=== PATIENT | female | born 1980 | race Caucasian/White ===

== ENCOUNTER 2020-07-14 13:45 | Emergency (ER) | payer OTHER ==
[2020-07-14 14:23] VITALS: BP 136/82; PULSE 100; TEMP 98.1; BMI 32.5
--- NOTE | 2020-07-14 14:39 | PDOC ---
History of Present Illness - General Chief Complaint: Blood Pressure Problem Stated Complaint: HIGH BLOOD PRESSURE Time Seen by Provider: 07/14/20 13:53 History Source: Patient - History of Present Illness Initial Comments: 07/14/20 14:29 39 yo female pmh HTN and HLD presents to the ED with elevated BP, GALLEGOS and CP. Pt states this am she noted her BP to be 160 systolic and became concerned, PCP appointment is on 07/25 so she decided not to wait and came to the ED. Pt took amlodipine and valsartan after her initial BP reading at home, BP in the ED 130 systolic. Pt reports having a new GALLEGOS today with dizziness. Denies changes in vision, N/V/F/C, changes in gait, weakness or sensory changes on 1 side/. Pt also complains of CP described as pressure, made worse on ambulation. Pt reports this pain of of the same quality and intensity as CP she has had over the last 2 months, states she is in discussion with her PCP for Cardiology follow up but has never seen a pilot supervisor. Denies fhx of DE, smoking hx, calf tenderness, SOB, abdominal pain, back pain. Past History - Medical History Allergies/Adverse Reactions: Allergies Allergy/AdvReac Type Severity Reaction Status Date / Time No Known Allergies Allergy Verified 07/14/20 13:48 Home Medications: Ambulatory Orders Amlodipine Besylate 10 mg PO DAILY 07/14/20 Valsartan 320 mg PO DAILY 07/14/20 COPD: No GI Disorders: Yes (GERD) HTN: Yes - Reproductive History Is Patient Now?: No - Psycho-Social/Smoking History Smoking History: Never smoked - Substance Abuse Hx (Audit-C & DAST Scrn) How often the patient has a drink containing alcohol: Monthly or less Score: In Men: 4 or > Positive; In Women: 3 or > Positive: 1 Screen Result (Pos requires Nsg. Audit-10AR): Negative In the last yr the pt used illegal drug/Rx for NonMed reason: No Score: Yes response is considered Positive: 0 Screen Result (Positive result requires Nsg. DAST-10): Negative Review of Systems - Review of Systems Constitutional: Yes: Symptoms Reported HEENTM: Yes: Symptoms Reported Respiratory: Yes: Symptoms reported Cardiac (ROS): Yes: Symptoms Reported ABD/GI: Yes: Symptoms Reported : Yes: Symptoms Reported Musculoskeletal: Yes: Symptoms Reported Integumentary: Yes: Symptoms Reported Neurological: Yes: Symptoms reported *Physical Exam - Vital Signs Last Vital Signs Temp Pulse Resp BP Pulse Ox 98.1 F 100 H 15 136/82 100 07/14/20 13:47 07/14/20 13:47 07/14/20 13:47 07/14/20 13:47 07/14/20 13:47 - Physical Exam General Appearance: Yes: Nourished, Appropriately Dressed. No: Apparent Distress HEENT: positive: EOMI Neck: positive: Supple Respiratory/Chest: positive: Lungs Clear, Normal Breath Sounds. negative: Respiratory Distress, Accessory Muscle Use, Crackles, Rales, Rhonchi, Stridor, Wheezing Cardiovascular: positive: Regular Rhythm, S1, S2, Tachycardia. negative: Edema, JVD, Murmur Vascular Pulses: Dorsalis-Pedis (R): 4+, Doralis-Pedis (L): 4+ Gastrointestinal/Abdominal: positive: Flat, Soft. negative: Pulsatile Mass, Protuberent, Guarding, Rebound, Tenderness Musculoskeletal: negative: CVA Tenderness Extremity: positive: Normal Capillary Refill, Normal Inspection Integumentary: positive: Normal Color, Dry, Warm Neurologic: positive: eyeglass frame truer II-XII NML intact, Fully Oriented, Alert, Normal Mood/Affect, Normal Response, Motor Strength 5/5, Finger to Nose (normal). negative: Facial Droop, Numbness, Sensory Deficit, Confused, Disoriented Heart Score/ECG Review - History History: Slightly suspicious - Electrocardiogram EKG: Normal - Age Age: </= 45 - Risk Factors Risk Factors Heart Score: Yes Hx Hypercholesterolemia, Yes Hx Hypertension, No Hx Diabetes, No Smoking History, No Positive family hx of cardiac disease - Troponin Troponin: </= normal limit ED Treatment Course - LABORATORY CBC & Chemistry Diagram: 07/14/20 14:50 07/14/20 14:50 - RADIOLOGY Radiology Studies Ordered: Category Date Time Status HEAD CT WITHOUT CONTRAST [CT] Stat CT Scan 07/14/20 13:59 Ordered CHEST PA & LAT [RAD] Stat Radiology 07/14/20 13:59 Taken Medical Decision Making - Medical Decision Making 07/14/20 15:40 39 yo female pmh HTN and HLD presents to the ED with elevated BP, GALLEGOS and CP. Pt states this am she noted her BP to be 160 systolic and became concerned, PCP prince rosa is on 07/25 so she decided not to wait and came to the ED. Pt took amlodipine and valsartan after her initial BP reading at home, BP in the ED 130 systolic. Pt reports having a new GALLEGOS today with dizziness. Denies changes in vision, N/V/F/C, changes in gait, weakness or sensory changes on 1 side/. Pt also complains of CP described as pressure, made worse on ambulation. Pt reports this pain of of the same quality and intensity as CP she has had over the last 2 months, states she is in discussion with her PCP for Cardiology follow up but has never seen a pilot supervisor. Denies fhx of DE, smoking hx, calf tenderness, SOB, abdominal pain, back pain. vitals stable, HR 100, BP 136 systolic NAD Pt has a HEART score 2-3, pending labs, CXR and trop Pt ambulates in the ED without pain or worsening CP 07/14/20 15:44 EKG shows NSR, Vent rate 78, QTC 446, normal intervals, no ST changes Labs WNL including trop CXR wnl Pt is safe for DC home with PCP f/u and Cardiology Discharge - Discharge Information Problems reviewed: Yes Clinical Impression/Diagnosis: High blood pressure, Chest pain Condition: Good Disposition: HOME - Admission No - Follow up/Referral Referrals: Kev Edmond MD [Staff Physician] - [facility] [place] [facility] [place] [Provider Group] - Patient Discharge Instructions Patient Printed Discharge Instructions: DI for High Blood Pressure, DI for Atypical Chest Pain, DI for Chest Pain, How to Monitor Your Blood Pressure at Home Additional Instructions: Please see your Primary Doctor within 48 hours and make an appointment to see the Sports Reporter as soon as possible. Make sure to take your blood pressure medications as prescribed daily. Return to the ER for new or concerning symptoms. THank you Print Language: SAMOAN - Post Discharge Activity
--- NOTE | 2020-07-14 14:52 | PDOC ---
Attending Attestation - Resident Resident Name: YousifSaturnino - ED Attending Attestation I have performed the following: I have examined & evaluated the patient, The case was reviewed & discussed with the resident, I agree w/resident's findings & plan, Exceptions are as noted - HPI HPI: 07/14/20 14:22 39YOF with h/o HTN, HLD, and obesity who p/w report of high blood pressure at home (150s systolic yesterday and 160s systolic today, both measurements taken about 24 hours after her previous daily dose of antihypertensive meds). She notes associated mid-chest and left shoulder pain which has been ongoing but fluctuating for months, no different today than normal. She additionally notes occasional lightheadedness and mild dull diffuse headache for the same time span. She denies any SOB, cough, wheezing, palpitations, abdominal pain, back pain, or numbness, tingling, or focal weakness. No h/o smoking, no FHx cardiac issues. - Physicial Exam PE: 07/14/20 15:22 GENERAL: well-appearing, nontoxic, obese, comfortable, accompanied by family, Cuban speaking, A/Ox4, no distress, answers questions appropriately HEENT: PERRLA, EOMI, moist mucous membranes NECK/BACK: no midline ttp, no spinal step-off or deformity, no hematoma, full ROM, neck supple CARDIOVASCULAR: regular rate/rhythm, no MGR, strong peripheral pulses, capillary refill <2 seconds, extremities wwp, no edema LUNGS/RESPIRATORY: no respiratory distress, CTAB GI/ABDOMEN: symmetric [id number], normoactive BS, soft, no ttp, no midline pulsatile masses : no CVA tenderness MSK/EXTREMITIES: no muscle atrophy, no acute deformity SKIN: warm and dry, no pallor, no jaundice, no rash, no pathologic-appearing bruising, no skin breakdown, no cuts, no lesions NEUROLOGICAL: GCS 15, CN II-XII grossly intact, 5/5 strength proximally and distally, no facial droop - Medical Decision Making 07/14/20 15:33 39YOF with HTN, HLD, and obesity p/w fluctuating CP for months and also mild HTN measured at home for 2 days. Initial Vital Signs Temp Pulse Resp BP Pulse Ox 98.1 F 100 H 15 136/82 100 07/14/20 13:47 07/14/20 13:47 07/14/20 13:47 07/14/20 13:47 07/14/20 13:47 Most likely this is unchanged chronic non-cardiac chest pain as the patient has few risk factors, is fairly young, and has no associated SOB, nausea, neck pain, jaw pain, and there is no exertional component and it has been present/fluctuating for the past few months. Less likely ACS, not likely PE as patient's vitals are wnl and she is not SOB, unlikely esophageal pathology as patient has no hx and no trouble eating/swallowing, possible gastritis/PUD but there is no burning component and no strange taste in her mouth, less likely pancreatitis or biliary pathology as her pain is in the left shoulder more than right and has no exacerbation after eating and no radiation to the back and no RUQ or epigastric ttp. Possible musculoskeletal component/costochondritis. Provider Orders Category Date Time Status HEAD CT WITHOUT CONTRAST [CT] Stat CT Scan 07/14/20 13:59 Completed ELECTROCARDIOGRAM [CARD] Stat Cardiology 07/14/20 13:59 Completed EKG needed NOW Care 07/14/20 14:00 Active CARDIAC PROFILE (ONLY [facility]) Stat Lab 07/14/20 14:50 Completed CBC WITH DIFFERENTIAL Stat Lab 07/14/20 14:50 Completed COMP METABOLIC PANEL Stat Lab 07/14/20 14:50 Completed HCG,QUALITATIVE URINE Stat Lab 07/14/20 15:15 Completed PT/INR (PROTHROMBIN TIME) Stat Lab 07/14/20 14:50 Completed UA ([facility] ONLY) Stat Lab 07/14/20 15:15 Completed CHEST PA & LAT [RAD] Stat Radiology 07/14/20 13:59 Completed Lab Results WBC 5.2 K/mm3 (4.0-10.8) 07/14/20 14:50 RBC 4.56 M/mm3 (3.60-5.2) 07/14/20 14:50 Hgb 12.9 GM/dl (10.7-15.3) 07/14/20 14:50 Hct 39.1 % (32.4-45.2) 07/14/20 14:50 MCV 85.8 fl (80-96) 07/14/20 14:50 MCH 28.4 pg (25.7-33.7) 07/14/20 14:50 MCHC 33.1 g/dl (32.0-36.0) 07/14/20 14:50 RDW 22.6 % (11.6-15.6) H 07/14/20 14:50 Plt Count 272 K/MM3 (134-434) 07/14/20 14:50 MPV 8.4 fl (7.5-11.1) 07/14/20 14:50 Absolute Neuts (auto) 3.6 K/mm3 07/14/20 14:50 Neutrophils % 68.8 % (42.8-82.8) 07/14/20 14:50 Lymphocytes % 23.5 % (8-40) 07/14/20 14:50 Monocytes % 5.6 % (3.8-10.2) 07/14/20 14:50 Eosinophils % 1.5 % (0-4.5) 07/14/20 14:50 Basophils % 0.6 % (0-2.0) 07/14/20 14:50 PT with INR 12.2 SEC (10.2-13.0) 07/14/20 14:50 INR 1.09 (0.82-1.09) 07/14/20 14:50 Sodium 137 mmol/L (136-145) 07/14/20 14:50 Potassium 4.4 mmol/L (3.5-5.1) 07/14/20 14:50 Chloride 106 mmol/L (98-107) 07/14/20 14:50 Carbon Dioxide 24 mmol/L (21-32) 07/14/20 14:50 Anion Gap 7 MMOL/L (8-16) L 07/14/20 14:50 BUN 11.0 mg/dl (7-18) 07/14/20 14:50 Creatinine 0.7 mg/dl (0.55-1.3) 07/14/20 14:50 Est GFR (CKD-EPI)AfAm 124.73 07/14/20 14:50 Est GFR (CKD-EPI)NonAf 107.62 07/14/20 14:50 Random Glucose 121 mg/dl (74-106) H 07/14/20 14:50 Calcium 9.0 mg/dl (8.5-10) 07/14/20 14:50 Total Bilirubin 0.6 mg/dl (0.2-1) 07/14/20 14:50 AST 18 U/L (15-37) 07/14/20 14:50 ALT 24 U/L (13-61) 07/14/20 14:50 Alkaline Phosphatase 67 U/L (45-117) 07/14/20 14:50 Creatine Kinase 95 U/L (26-192) 07/14/20 14:50 Troponin I < 0.03 ng/ml (0.00-0.05) 07/14/20 14:50 Total Protein 7.3 g/dl (6.4-8.2) 07/14/20 14:50 Albumin 4.5 g/dl (3.4-5.0) 07/14/20 14:50 Urine Color Yellow 07/14/20 15:15 Urine Appearance Clear 07/14/20 15:15 Urine pH 8.5 (4.5-8) H 07/14/20 15:15 Urine Protein Negative (NEGATIVE) 07/14/20 15:15 Urine Glucose (UA) Negative (NEGATIVE) 07/14/20 15:15 Urine Ketones Negative (NEGATIVE) 07/14/20 15:15 Urine Blood Negative (NEGATIVE) 07/14/20 15:15 Urine Nitrite Negative (NEGATIVE) 07/14/20 15:15 Urine Bilirubin Negative (NEGATIVE) 07/14/20 15:15 Urine Urobilinogen 0.2 (0.2-1.0) 07/14/20 15:15 Ur Leukocyte Esterase Negative (NEGATIVE) 07/14/20 15:15 Urine HCG, Qual Negative 07/14/20 15:15 RAD/CHEST PA LAT Chest: Chest pain 2 views of the chest have been submitted. There are no prior studies for comparison. There is some minimal vertebral wedging, clear lungs, sharp angles and normal mediastinum. An acute process is not seen. Impression: No acute chest pathology. Vertebral wedging. No comparison studies. CT/HEAD CT WITHOUT CONTRAST History: Headaches with elevated blood pressure CT scan of the brain without intravenous contrast. Axial images were obtained from the skull base up to the high convexity. COMPARISON: None available The ventricles and basal cisterns appear unremarkable. No mass lesion, gross acute infarct or intracranial hemorrhage are identified. Visualized paranasal sinuses and mastoid air cells are well-aerated. The calvarium is intact. Impression: No evidence of a focal intracranial lesion or hemorrhage seen. On last reassessment VS are stable, Pts pain is resolved, and exam is benign. The Pts HEART score indicates they are low risk and do not require admission currently. The Pt is appropriate for discharge with close outPt follow up. They are comfortable with this plan and will follow up with PCP in 1-3 days. Specific return precautions are discussed and they will come back to the ER if necessary. Heart Score/ECG Review - History History: Slightly suspicious - Electrocardiogram EKG: Normal - Age Age: </= 45 - Risk Factors Risk Factors Heart Score: Yes Hx Hypercholesterolemia, Yes Hx Hypertension, Yes Hx Obesity Based on the list above the patient has:: >/=3 risk factors or Hx atherosclerotic disease - Troponin Troponin: </= normal limit - Score Heart Score - Total: 2 #1 Sinus rhythm, rate 78, normal axis and intervals, no ischemic ST-T changes Discharge - Discharge Information Problems reviewed: Yes Clinical Impression/Diagnosis: High blood pressure Qualifiers: Hypertension type: unspecified Qualified Code(s): I10 - Essential (primary) hypertension Chest pain Qualifiers: Chest pain type: unspecified Qualified Code(s): R07.9 - Chest pain, unspecified Condition: Stable Disposition: HOME - Admission No - Follow up/Referral Referrals: [facility] [place] [facility] [place] [Provider Group] Kev Edmond MD [Staff Physician] - - Patient Discharge Instructions Patient Printed Discharge Instructions: DI for High Blood Pressure, DI for Atypical Chest Pain, DI for Chest Pain, How to Monitor Your Blood Pressure at Home Additional Instructions: Please see your Primary Doctor within 48 hours and make an appointment to see the Build Technician as soon as possible. Make sure to take your blood pressure medications as prescribed daily. Return to the ER for new or concerning symptoms. THank you Print Language: UPPER SORBIAN - Post Discharge Activity
[2020-07-14 15:00] LABS: BASO % 0.6 % (0-2.0); EOS % 1.5 % (0-4.5); HEMATOCRIT 39.1 % (32.4-45.2); HEMOGLOBIN 12.9 GM/dl (10.7-15.3); LYMPH % 23.5 % (8-40); MCH 28.4 pg (25.7-33.7); MCHC 33.1 g/dl (32.0-36.0); MEAN CELL VOLUME 85.8 fl (80-96); MEAN PLT VOLUME 8.4 fl (7.5-11.1); MONO % 5.6 % (3.8-10.2); NEUT % 68.8 % (42.8-82.8); PLATELET COUNT 272 K/MM3 (134-434); RBC 4.56 M/mm3 (3.60-5.2); RDW 22.6 % (11.6-15.6); WHITE BLOOD COUNT 5.2 K/mm3 (4.0-10.8)
[2020-07-14 15:07] LABS: INR 1.09 (0.82-1.09); PROTHROMBIN TIME (PATIENT) 12.2 SEC (10.2-13.0)
[2020-07-14 15:13] LABS: ALBUMIN 4.5 g/dl (3.4-5.0); BILIRUBIN,TOTAL 0.6 mg/dl (0.2-1); CREATININE 0.7 mg/dl (0.55-1.3); POTASSIUM 4.4 mmol/L (3.5-5.1); TOT PROT 7.3 g/dl (6.4-8.2)
[2020-07-14 15:28] LABS: HCG,QUALITATIVE URINE Negative
--- NOTE | 2020-07-15 15:00 | EKG ---
Test Reason : Blood Pressure : / mmHG Vent. Rate : 078 BPM Atrial Rate : 078 BPM P-R Int : 138 ms QRS Dur : 080 ms QT Int : 392 ms P-R-T Axes : 058 044 028 degrees QTc Int : 446 ms NORMAL SINUS RHYTHM NORMAL ECG NO PREVIOUS ECGS AVAILABLE Confirmed by Julien Thornton ([id number]) on 07/15/2020 2:59:45 PM Referred By: MD MCCARTNEY Confirmed By:Julien Thornton
== END 2020-07-14 15:53 | disposition home or self-care (01) ==
LOC: FER 13:45
DX: R07.9 Chest pain, unspecified (principal); I10 Essential (primary) hypertension
CPT/HCPCS: 36415; 70450-TC; 71046-TC-FY; 80053; 81003; 82550; 84484; 84703; 85025; 85610; 93005; 99283-25

== ENCOUNTER 2020-09-26 13:15 | Emergency (ER) | payer OTHER ==
[2020-09-26 13:24] VITALS: BP 133/86; PULSE 85; TEMP 98.5; BMI 31.0
[2020-09-26] MEDS ORDERED: DIPHTH,PERTUSS(ACELL),TET 0.5 ML DISP.SYRIN IM ONE ×2 (13:31→13:45)
[2020-09-26] MEDS ORDERED: SULFAMETHOXAZOLE/TRIMETHOPRIM 800MG/160MG D.S. TABLET PO ONE (14:44)
[2020-09-26] MEDS ORDERED: SULFAMETHOXAZOLE/TRIMETHOPRIM 800MG/160MG D.S. TABLET ONE (14:47)
== END 2020-09-26 14:54 | disposition home or self-care (01) ==
LOC: FER 13:15
DX: Z48.02 Encounter for removal of sutures (principal)
CPT/HCPCS: 73140-TC-RT-FY; 90715; 99281-25

== ENCOUNTER 2020-09-28 12:55 | Emergency (ER) | payer OTHER ==
[2020-09-28 13:14] VITALS: BP 124/71; PULSE 98; TEMP 97.8; BMI 30.9
== END 2020-09-28 13:30 | disposition home or self-care (01) ==
LOC: FER 12:55
DX: Z48.00 Encounter for change or removal of nonsurgical wound dressing (principal)
CPT/HCPCS: 99281-25

== ENCOUNTER 2021-08-31 06:01 | Day surgery (SDC) | payer OTHER ==
[2021-08-28 11:27] VITALS: BMI 34.7
[2021-08-31] MEDS ORDERED: MIDAZOLAM HCL 2 MG/2 ML SINGLE DOSE VIAL ONE (06:42)
[2021-08-31] MEDS ORDERED: ROPIVACAINE HCL 0.5% 30ML VIAL ONE (06:42)
[2021-08-31] MEDS ORDERED: DEXAMETHASONE SOD PHOSPHATE 10 MG/1 ML VIAL ONE (06:42)
[2021-08-31] MEDS ORDERED: EPINEPHrine 1:1,000 1 MG/1 ML - 30ML VIAL (INJECTION) ONE (07:24)
[2021-08-31] MEDS ORDERED: SUCCINYLCHOLINE CHLORIDE 200 MG/10 ML SYRINGE ONE (07:46)
[2021-08-31] MEDS ORDERED: PROPOFOL 20 ML ONE ×3 (07:46)
[2021-08-31] MEDS ORDERED: LIDOCAINE HCL 2% JELLY (5 ML/TUBE) ONE (07:47)
[2021-08-31] MEDS ORDERED: LIDOCAINE HCL/PF 2% SDV 5ML VIAL ONE (07:47)
[2021-08-31] MEDS ORDERED: EPINEPHrine/PF 1 MG/1 ML (1:1,000) AMPULE ONE (08:07)
[2021-08-31] MEDS ORDERED: BUPIVACAINE HCL/PF 0.25% (2.5MG/ML) 10 ML VIAL ONE (08:07)
[2021-08-31] MEDS ORDERED: BUPIVACAINE HCL/PF 2.5 MG/ML - 30 ML VIAL IJ ONE (08:09)
[2021-08-31] MEDS ORDERED: BUPIVICAINE 0.25%/MORPH PF/KETOROLAC - 51ML DISP.SYRINGE IA ONE (08:23)
[2021-08-31] MEDS ORDERED: ONDANSETRON 4 MG/2 ML VIAL ONE (09:55)
[2021-08-31] MEDS ORDERED: ONDANSETRON 4 MG/2 ML VIAL IVPUSH PRN (10:00)
[2021-08-31] MEDS ORDERED: ACETAMINOPHEN 1000 MG/100 ML VIAL IVPB ONE (10:00)
[2021-08-31] MEDS ORDERED: PROMETHAZINE HCL 25 MG/1 ML VIAL IVPUSH PRN (10:00)
[2021-08-31] MEDS ORDERED: oxyCODONE HCL 5 MG TABLET PO PRN ×2 (10:00)
[2021-08-31 10:38] VITALS: TEMP 97.3
[2021-08-31 12:56] VITALS: BP 119/79; PULSE 86
== END 2021-08-31 12:15 | disposition home or self-care (01) ==
LOC: FASU 06:01
PROVIDERS: ATTEND Orthopaedic Surgery
PROC: 0PB94ZZ Excision of Right Clavicle, Percutaneous Endoscopic Approach (ICD-10-PCS; principal; 2021-08-31 08:22)
PROC: 0RBJ4ZZ Excision of Right Shoulder Joint, Percutaneous Endoscopic Approach (ICD-10-PCS; 2021-08-31 08:22)
DX: M75.111 Incomplete rotator cuff tear or rupture of right shoulder, not specified as traumatic (principal); S43.431A Superior glenoid labrum lesion of right shoulder, initial encounter; X58.XXXA Exposure to other specified factors, initial encounter; Y93.9 Activity, unspecified; Y92.9 Unspecified place or not applicable; M65.811 Other synovitis and tenosynovitis, right shoulder; M75.01 Adhesive capsulitis of right shoulder; M19.011 Primary osteoarthritis, right shoulder
CPT/HCPCS: 81025; 88304-TC; 94760; J1100

== ENCOUNTER 2025-02-12 09:10 | Emergency (ER) | payer OTHER ==
[2025-02-12 09:17] VITALS: BP 124/69; PULSE 74; RESP 18; TEMP 98.4; BMI 27.9
[2025-02-12] MEDS ORDERED: ACETAMINOPHEN INJECTION 100 ML ONE (09:51)
[2025-02-12 10:04] LABS: BASOPHILS # 0.01 x10^3/uL (0.01-0.08); EOSINOPHIL % 1.3 % (0.7-5.8); EOSINOPHILS # 0.04 x10^3/uL (0.04-0.36); HEMATOCRIT 38.7 % (34.1-44.9); MCHC 33.6 g/dl (32.2-35.5); MEAN PLT VOLUME 9.8 fl (9.4-12.3); MONOCYTE # 0.33 x10^3/uL (0.24-0.86); MONOCYTE % 10.9 % (4.7-12.5); PLATELET COUNT 201 x10^3/uL (182-369); RDW 12.3 % (12.2-17.1)
[2025-02-12] MEDS: ACETAMINOPHEN 1000 MG/100 ML BAG IVPB ONE (10:07)
[2025-02-12 10:12] LABS: ALBUMIN 4.2 g/dl (3.4-5.0); ALK PHOS 48 U/L (45-117); ANION GAP 9 mmol/L (4-13); BILIRUBIN,TOTAL 0.5 mg/dl (0.2-1); CALCIUM 9.4 mg/dl (8.5-10.1); CHLORIDE 106 mmol/L (98-107); CO2 24 mmol/L (21-32); CREATININE 0.6 mg/dl (0.6-1.3); GLUCOSE,RANDOM 76 mg/dl (74-106); SGOT/AST 15 U/L (15-37); SGPT/ALT 18 U/L (7-52); SODIUM 139 mmol/L (136-145); TOT PROT 6.5 g/dl (6.4-8.2)
[2025-02-12 15:19] LABS: HCV DIAGNOSTIC IN-HOUSE W/RFLX NON-REACTIVE (NONREACTIVE)
[2025-02-12 15:20] LABS: HIV INTERPRETATION NEGATIVE (NEGATIVE)
== END 2025-02-12 11:45 | disposition home or self-care (01) ==
LOC: FER 09:10
PROC: 3E033NZ Introduction of Analgesics, Hypnotics, Sedatives into Peripheral Vein, Percutaneous Approach (ICD-10-PCS; principal; 2025-02-12)
DX: R07.89 Other chest pain (principal); R00.2 Palpitations
CPT/HCPCS: 36415; 71046-TC-FY; 80053; 82550; 84484; 85025; 86803; 87389; 93005; 99285-25; J0131